=== PATIENT | female | born 1960 | race American Indian/Alaskan Native ===

== ENCOUNTER 2019-04-05 05:18 | Inpatient (IN) | payer BC ==
[2019-04-03 14:39] LABS: BASOPHILS # (AUTO) 0.1 X10'3 (0-0.2); BASOPHILS % (AUTO) 1.3 % (0-1); EOSINOPHILS # (AUTO) 0.2 X10'3 (0-0.9); EOSINOPHILS % (AUTO) 2.7 % (0-6); LYMPHOCYTES # (AUTO) 0.9 X10'3 (1.1-4.8); LYMPHOCYTES % (AUTO) 13.8 % (21-51); MEAN CORPUSCULAR HEMOGLOBIN 30.4 PG (27.0-31.0); MEAN CORPUSCULAR HGB CONC 34.2 g/dL (33.0-36.5); MEAN CORPUSCULAR VOLUME 88.9 FL (78-98); MEAN PLATELET VOLUME 7.6 FL (7.4-10.4); MONOCYTES # (AUTO) 0.5 X10'3 (0-0.9); MONOCYTES % (AUTO) 8.5 % (2-12); NEUTROPHILS # (AUTO) 4.8 X10'3 (1.8-7.7); NEUTROPHILS % (AUTO) 73.7 % (42-75); PRE OP HEMATOCRIT 42.9 % (35.0-45.0); PRE OP HEMOGLOBIN 14.7 g/dL (12.0-16.0); PRE OP PLATELET COUNT 229 X10'3 (140-440); RED BLOOD COUNT 4.83 X10'6 (4.20-5.60); RED CELL DISTRIBUTION WIDTH 13.7 % (11.5-14.5)
[2019-04-03 14:52] LABS: PRE OP INR 1.1 INR; PRE OP PROTIME 10.8 SECONDS (9.0-12.0)
[2019-04-03 14:55] LABS: ALBUMIN 3.8 G/DL (3.4-5.0); ALBUMIN/GLOBULIN RATIO 0.9 (1.1-1.5); ALKALINE PHOSPHATASE 111 IU/L (46-116); BLOOD UREA NITROGEN 13 MG/DL (7-18); BUN/CREATININE RATIO 21.7 (6.6-38.0); CALCIUM 9.4 MG/DL (8.5-10.1); CHLORIDE 105 MMOL/L (99-107); PRE OP ALT 48 U/L (30-65); PRE OP ANION GAP 9 (8-16); PRE OP AST 29 U/L (10-37); PRE OP BILIRUB, TOTAL 0.5 MG/DL (0.0-1.0); PRE OP GLUCOSE 87 MG/DL (70-104); PRE OP POTASSIUM 4.3 MMOL/L (3.4-5.1); PRE OP SODIUM 141 MMOL/L (135-145); TOTAL CARBON DIOXIDE 27.4 MMOL/L (24-32); eGFR > 90 ML/MIN
[2019-04-03 15:08] LABS: CLARITY,URINE CLEAR (Clear); COLOR,URINE YELLOW (Yellow); GLUCOSE, URINE NEGATIVE (Neg); KETONES,URINE 15 mg/dl (Neg); LEUKOCYTE ESTERASE ,URINE NEGATIVE (Neg); NITRITES, URINE NEGATIVE (Neg); OCCULT BLOOD,URINE SMALL (Neg); PH,URINE 5.5 (4.8-8.0); PROTEIN,URINE NEGATIVE (Neg); UROBILINOGEN,URINE 0.2 E.U/dL (0.2-1.0)
[2019-04-03 15:09] LABS: UA COLLECTION TYPE CLN CATCH MIDSTREAM
[2019-04-03 15:12] LABS: HEMOGLOBIN A1C 5.6 % (4.5-6.2)
[2019-04-03 15:20] LABS: BACTERIA,URINE 1+ /HPF (Neg); MUCUS STRANDS MODERATE /LPF (Neg); RBC,URINE 0-2 /HPF (0-2); SQUAMOUS EPITHELIAL CELL,UR FEW /LPF (FEW); WBC,URINE 0-4 /HPF (0-4)
[2019-04-04 14:16] LABS: ABG BASE EXCESS 0.9 mmol/L (-2.0-3.0); ABG HCO3 24.8 mmol/L (22.0-26.0); ABG PCO2 (T) 37.5 mmHg (35.0-45.0); ABG PH (T) 7.438 (7.350-7.450); ABG PO2 (T) 88.6 mmHg (83-108); ALLEN'S TEST Positive; FCOHb 1.4 % (0.5-1.5); FMetHb 0.1 % (0.3-1.12); FO2Hb 95.5 % (94-100); TOTAL HEMOGLOBIN 15.1 G/dl (12.0-16.0)
[~2019-04-05] VITALS: Ht 165.1 cm; Wt 82.6 kg
[2019-04-05] VITALS (18 sets, daily range): BP systolic 91–151; BP diastolic 47–97
[~2019-04-05 05:18] MED LIST: IBUP-1985 PO
[2019-04-05] MEDS ORDERED: ringers solution, lacted 1,000 ML IV SCH ×2 (05:30→08:53)
[2019-04-05] MEDS ORDERED: gabapentin 300mg capsule PO ONE (05:30)
[2019-04-05] MEDS ORDERED: mupirocin 2% nasal ointment 1gm UD NS ONE (05:30)
[2019-04-05] MEDS ORDERED: famotidine 20mg tablet PO ONE (05:30)
[2019-04-05] MEDS ORDERED: cefazolin/dext.iso 2gm/100 ML IV ONE (05:30)
[2019-04-05] MEDS ORDERED: LIDOcaine 1% (10mg/ml) 2ml vial ONE (05:47)
[2019-04-05] MEDS ORDERED: BUPIVAcaine/PF 2.5 mg/ml (0.25%) 30ml vial ONE (06:58)
[2019-04-05] MEDS ORDERED: scopolamine 1.5mg patch.TD72 TD ONE (07:08)
[2019-04-05] MEDS ORDERED: propofol inj 20 ML IV ONE (07:14)
[2019-04-05] MEDS ORDERED: rocuronium 10mg/ml inj IV ONE (07:14)
[2019-04-05] MEDS ORDERED: dexamethasone sod phosphate 10mg/ml inj ONE (07:14)
[2019-04-05] MEDS ORDERED: fentaNYL /PF 50mcg/ml 5ml ampule ONE (07:14)
[2019-04-05] MEDS ORDERED: sevoflurane 250ml liquid IH ONE (07:14)
[2019-04-05] MEDS ORDERED: MIDAZolam 5mg/5ml vial ONE (07:14)
[2019-04-05] MEDS ORDERED: labetalol 20mg/4ml (5mg/ml) syringe IV ONE (08:27)
[2019-04-05] MEDS ORDERED: ondansetron/PF 4mg/2ml inj ONE (08:50)
[2019-04-05] MEDS ORDERED: sugammadex 200mg/2ml injection IV ONE (08:51)
[2019-04-05] MEDS ORDERED: meperidine/PF 25mg/ml syringe IV PRN ×3 (08:55)
[2019-04-05] MEDS ORDERED: proCHLORperazine 10 MG/2 ml inj IV PRN (08:55)
[2019-04-05] MEDS ORDERED: morphine 4 MG/ML inj SYRINge IV PRN ×3 (08:55→09:10)
[2019-04-05] MEDS ORDERED: ondansetron/PF 4mg/2ml inj IV PRN ×2 (08:55→09:10)
[2019-04-05] MEDS ORDERED: metoclopramide 5 mg/ml inj IV PRN (09:10)
[2019-04-05] MEDS ORDERED: naloxone 0.4 mg/ml inj IV PRN (09:10)
[2019-04-05] MEDS ORDERED: magnesium hydroxide 30ml (MOM) UD suspension PO PRN (09:10)
[2019-04-05] MEDS ORDERED: HYDROcodone/acetaminophen 10/325mg tab PO PRN ×2 (09:10)
[2019-04-05] MEDS ORDERED: albuterol 2.5 MG/3 ML nebule NEB PRN (09:10)
--- NOTE | 2019-04-05 09:15 | NUR ---
Received from OR via BED , accompanied by Anesthesiologist DR ESPANA and report given by Anesthesiolgist. PATIENT WAKING UP, DENIES PAIN AT THIS TIME, V/S WNL, CSM INTACT, F/C DRAINING CLEAR YELLOW URINE, SCD ON, 18G PIV TO lUE AND ART LINE TO RUE, CENTRAL LINE TO RIGHT NECK, CHEST TUBE DRESSING TO right SIDE HOOKED UP TO 20CM OF SUCTION WITH mild AIR LEAK DETECTED albino aware, AND DRESSING IS CDI AND ABOUT 10CC IN CT DRAIN.
[2019-04-05 09:46] LABS: ABG BASE EXCESS -1.4 mmol/L (-2.0-3.0); ABG HCO3 24.8 mmol/L (22.0-26.0); ABG OXYGEN SATURATION 98.9 % (95-98); ABG PCO2 (T) 45.5 mmHg (35.0-45.0); ABG PO2 (T) 170.2 mmHg (83-108); FLOW 10 L/min; FMetHb 0.3 % (0.3-1.12); FO2Hb 98.6 % (94-100); TOTAL HEMOGLOBIN 14.7 G/dl (12.0-16.0)
--- NOTE | 2019-04-05 10:05 | NUR ---
PATIENT SLEEPY BUT ORIENTED, DENIES PAIN AT THIS TIME, V/S WNL, CSM INTACT, F/C DRAINING CLEAR YELLOW URINE, SCD ON, 18G PIV TO lUE AND ART LINE TO RUE, CENTRAL LINE TO RIGHT NECK, CHEST TUBE DRESSING TO right SIDE HOOKED UP TO 20CM OF SUCTION WITH mild AIR LEAK DETECTED albino aware, AND DRESSING IS CDI AND ABOUT 10CC IN CT DRAIN. PATIENT TAKEN TO ENRRIQUE UNIT WITH ALL BELONGINGS AND HOOKED UP TO MONITORS IN ROOM AND REPORT GIVEN TO RN WHO HAS TAKEN OVER PATIENT CARE.
--- NOTE | 2019-04-05 10:15 | NUR ---
Patient arrived to room 314 in stable condition. Sleepy but alert and oriented, 10/10 pain. Chest tube site looks good, no signs of air leak. Daughter at bedside.
[2019-04-05] MEDS: morphine 4 MG/ML inj SYRINge IV PRN ×2 (10:24→15:22)
[2019-04-05 11:08] LABS: ALBUMIN 3.4 G/DL (3.4-5.0); ANION GAP 8 (8-16); BLOOD UREA NITROGEN 13 MG/DL (7-18); BUN/CREATININE RATIO 18.6 (6.6-38.0); CALCIUM 8.7 MG/DL (8.5-10.1); CHLORIDE 105 MMOL/L (99-107); GLUCOSE 132 MG/DL (70-104); POTASSIUM 4.1 MMOL/L (3.5-5.1); SODIUM 140 MMOL/L (135-145); TOTAL CARBON DIOXIDE 27.5 MMOL/L (24-32); eGFR 86 ML/MIN
[2019-04-05] MEDS: ketorolac tromethamine 15mg/ml inj. IV SCH ×2 (13:03→19:07)
[2019-04-05 13:24] LABS: BASOPHILS # (AUTO) 0.1 X10'3 (0-0.2); BASOPHILS % (AUTO) 0.5 % (0-1); EOSINOPHILS % (AUTO) 0.1 % (0-6); HEMATOCRIT 40.9 % (35.0-45.0); LYMPHOCYTES # (AUTO) 0.5 X10'3 (1.1-4.8); LYMPHOCYTES % (AUTO) 4.2 % (21-51); MEAN CORPUSCULAR HEMOGLOBIN 30.6 PG (27.0-31.0); MEAN CORPUSCULAR HGB CONC 34.1 g/dL (33.0-36.5); MEAN CORPUSCULAR VOLUME 89.7 FL (78-98); MONOCYTES # (AUTO) 0.2 X10'3 (0-0.9); MONOCYTES % (AUTO) 2.3 % (2-12); NEUTROPHILS % (AUTO) 92.9 % (42-75); PLATELET COUNT 214 X10'3 (140-440); RED BLOOD COUNT 4.56 X10'6 (4.20-5.60); RED CELL DISTRIBUTION WIDTH 13.8 % (11.5-14.5); WHITE BLOOD COUNT 10.7 X10'3 (4.5-11.0)
[2019-04-05] MEDS: ceFAZolin 1GM/D5W- ADD-VANTAGE 50 ML IV SCH (15:27)
--- NOTE | 2019-04-05 18:00 | NUR ---
Patient in room MED 314. I have received report from ALEX Collazo, and had the opportunity to ask questions and assume patient care.
--- NOTE | 2019-04-05 18:23 | NUR ---
Problems reprioritized. Patient report given, questions answered & plan of care reviewed with Shobha JOHNSON.
[2019-04-05] MEDS: docusate sod 100mg capsule PO SCH (19:07)
[2019-04-05] MEDS: gabapentin 300mg capsule PO SCH (19:07)
[2019-04-05] MEDS ORDERED: non-formulary drug (Ibuprofen 1 TAB) PO SCH (20:00)
[2019-04-06] MEDS: ceFAZolin 1GM/D5W- ADD-VANTAGE 50 ML IV SCH ×3 (00:10→16:27)
[2019-04-06] MEDS: ketorolac tromethamine 15mg/ml inj. IV SCH ×2 (01:42→08:11)
[2019-04-06 02:00] VITALS: BP 94/51
[2019-04-06 03:44] LABS: BASOPHILS % (AUTO) 0.4 % (0-1); EOSINOPHILS % (AUTO) 0.1 % (0-6); HEMATOCRIT 37.3 % (35.0-45.0); HEMOGLOBIN 12.7 g/dl (12.0-16.0); LYMPHOCYTES # (AUTO) 0.7 X10'3 (1.1-4.8); LYMPHOCYTES % (AUTO) 6.7 % (21-51); MEAN CORPUSCULAR HEMOGLOBIN 30.6 PG (27.0-31.0); MEAN CORPUSCULAR HGB CONC 33.9 g/dL (33.0-36.5); MEAN CORPUSCULAR VOLUME 90.2 FL (78-98); MEAN PLATELET VOLUME 8.3 FL (7.4-10.4); MONOCYTES % (AUTO) 9.5 % (2-12); NEUTROPHILS % (AUTO) 83.3 % (42-75); PLATELET COUNT 196 X10'3 (140-440); RED BLOOD COUNT 4.14 X10'6 (4.20-5.60); RED CELL DISTRIBUTION WIDTH 13.6 % (11.5-14.5); WHITE BLOOD COUNT 10.8 X10'3 (4.5-11.0)
[2019-04-06 03:56] LABS: ALBUMIN 2.9 G/DL (3.4-5.0); ANION GAP 4 (8-16); BLOOD UREA NITROGEN 13 MG/DL (7-18); BUN/CREATININE RATIO 19.7 (6.6-38.0); CALCIUM 8.6 MG/DL (8.5-10.1); CHLORIDE 108 MMOL/L (99-107); CREATININE 0.66 MG/DL (0.40-0.90); GLUCOSE 116 MG/DL (70-104); POTASSIUM 4.5 MMOL/L (3.5-5.1); SODIUM 140 MMOL/L (135-145); eGFR > 90 ML/MIN
--- NOTE | 2019-04-06 04:16 | NUR ---
BP has been low (with MAP < than 65) for 2 consecutive hours, pt has put out 2400 ml urine since 1800 on 04/05. RN gave 250 ml bolus, will re-assess BP. Provided water to IW.
[2019-04-06 06:00] VITALS: BP 93/49
--- NOTE | 2019-04-06 06:00 | NUR ---
Problems reprioritized. Patient report given, questions answered & plan of care reviewed with Art, RN.
[2019-04-06] MEDS ORDERED: HYDROcodone/acetaminophen 5mg/325mg tablet PO PRN (08:10)
[2019-04-06] MEDS: docusate sod 100mg capsule PO SCH ×2 (08:10→19:08)
[2019-04-06] MEDS: gabapentin 300mg capsule PO SCH ×2 (08:11→19:09)
[2019-04-06 11:00] VITALS: BP 106/64
[2019-04-06 15:00] VITALS: BP 107/54
[2019-04-06] MEDS ORDERED: acetaminophen 325mg tablet PO PRN ×2 (17:50)
[2019-04-06 18:00] VITALS: BP 125/59
--- NOTE | 2019-04-06 18:00 | NUR ---
Patient in room MED 314. I have received report from Art, RN and had the opportunity to ask questions and assume patient care.
[2019-04-06] MEDS: HYDROcodone/acetaminophen 5mg/325mg tablet PO PRN (19:09)
[2019-04-06 22:00] VITALS: BP 105/47
[2019-04-07] MEDS: ceFAZolin 1GM/D5W- ADD-VANTAGE 50 ML IV SCH ×2 (00:04→08:08)
[2019-04-07 02:00] VITALS: BP 103/53
[2019-04-07] MEDS: HYDROcodone/acetaminophen 5mg/325mg tablet PO PRN ×2 (02:14→08:13)
[2019-04-07 02:53] LABS: ALBUMIN 2.8 G/DL (3.4-5.0); ANION GAP 7 (8-16); BLOOD UREA NITROGEN 10 MG/DL (7-18); BUN/CREATININE RATIO 14.9 (6.6-38.0); CALCIUM 8.1 MG/DL (8.5-10.1); CHLORIDE 107 MMOL/L (99-107); CREATININE 0.67 MG/DL (0.40-0.90); GLUCOSE 103 MG/DL (70-104); POTASSIUM 4.3 MMOL/L (3.5-5.1); SODIUM 141 MMOL/L (135-145); eGFR > 90 ML/MIN
[2019-04-07 02:59] LABS: BASOPHILS % (AUTO) 0.5 % (0-1); EOSINOPHILS # (AUTO) 0.3 X10'3 (0-0.9); LYMPHOCYTES # (AUTO) 0.9 X10'3 (1.1-4.8); LYMPHOCYTES % (AUTO) 11.4 % (21-51); MEAN CORPUSCULAR HEMOGLOBIN 30.9 PG (27.0-31.0); MEAN CORPUSCULAR HGB CONC 34.1 g/dL (33.0-36.5); MEAN CORPUSCULAR VOLUME 90.5 FL (78-98); MEAN PLATELET VOLUME 8.7 FL (7.4-10.4); MONOCYTES # (AUTO) 0.8 X10'3 (0-0.9); MONOCYTES % (AUTO) 10.6 % (2-12); NEUTROPHILS # (AUTO) 5.9 X10'3 (1.8-7.7); NEUTROPHILS % (AUTO) 73.5 % (42-75); PLATELET COUNT 189 X10'3 (140-440); RED CELL DISTRIBUTION WIDTH 13.9 % (11.5-14.5)
[2019-04-07 06:00] VITALS: BP 110/55
--- NOTE | 2019-04-07 06:00 | NUR ---
Reviewed and agreed with Shon Phillips RN's charting
--- NOTE | 2019-04-07 06:37 | NUR ---
Patient in room MED 314. I have received report from Miladis and had the opportunity to ask questions and assume patient care.
[2019-04-07] MEDS ORDERED: HYDR-4383 PO (07:27)
[2019-04-07] MEDS ORDERED: COL100C PO (07:27)
[2019-04-07] MEDS: gabapentin 300mg capsule PO SCH (08:07)
[2019-04-07] MEDS: docusate sod 100mg capsule PO SCH (08:08)
--- NOTE | 2019-04-07 09:39 | NUR ---
Chest tube removed.
--- NOTE | 2019-04-07 11:31 | NUR ---
Villanueva and Central line removed.
--- NOTE | 2019-04-07 14:20 | NUR ---
Pt given DC instructions and RX given to pt. All known property returned to pt. Pt IV removed, tip intact. Pt assisted to POV in by tech.
--- NOTE | 2019-04-07 14:53 | NUR ---
Orientee documentation: I have reviewed and agree with all interventions, assessments performed and documented by ALEX Bass .
== END 2019-04-07 14:00 | disposition home or self-care (01) | DRG 168 ==
LOC: PAS IN 05:18 → EDSTATUS 07:30 → MED 3N 10:05
PROVIDERS: ADMIT Thoracic Surgery (Cardiothoracic Vascular Surgery); ATTEND Thoracic Surgery (Cardiothoracic Vascular Surgery)
PROC: 0BBC4ZX Excision of Right Upper Lung Lobe, Percutaneous Endoscopic Approach, Diagnostic (ICD-10-PCS; 2019-04-05)
PROC: 0BBD4ZX Excision of Right Middle Lung Lobe, Percutaneous Endoscopic Approach, Diagnostic (ICD-10-PCS; 2019-04-05)
PROC: 0W9940Z Drainage of Right Pleural Cavity with Drainage Device, Percutaneous Endoscopic Approach (ICD-10-PCS; 2019-04-05)
PROC: 0BJ08ZZ Inspection of Tracheobronchial Tree, Via Natural or Artificial Opening Endoscopic (ICD-10-PCS; 2019-04-05)
PROC: 3E0T3BZ Introduction of Anesthetic Agent into Peripheral Nerves and Plexi, Percutaneous Approach (ICD-10-PCS; 2019-04-05)
PROC: 05HY33Z Insertion of Infusion Device into Upper Vein, Percutaneous Approach (ICD-10-PCS; 2019-04-05)
PROC: 0BBF4ZX Excision of Right Lower Lung Lobe, Percutaneous Endoscopic Approach, Diagnostic (ICD-10-PCS; principal; 2019-04-05 07:14)
DX: R91.8 Other nonspecific abnormal finding of lung field (principal); G89.29 Other chronic pain; M54.5 Low back pain; R13.10 Dysphagia, unspecified; Z82.49 Family history of ischemic heart disease and other diseases of the circulatory system; Z82.3 Family history of stroke; Z87.891 Personal history of nicotine dependence; Z90.710 Acquired absence of both cervix and uterus
CPT/HCPCS: Z7506; Z7508; 36415; 36600; 71045; 71046; 80048; 80053; 81001; 82803; 82948; 83036; 83735; 85018; 85025; 85610; 85730; 86885; 86900; 86901; 87070; 87075; 87081; 87102; 87176; 93005; 94010; 94760; 97161; 97530; A4215; A4618; A6258; A6449; A7000; A7048; C1758; C9399; G0378; J0690; J1100; J1885; J2001; J2250; J2270; J2405; J2704; J3010; J3490; J7060; J7120

== ENCOUNTER 2019-04-20 12:48 | Outpatient (CLI) | payer BC ==
[~2019-04-20 12:48] MED LIST changes: +COL100C PO; +HYDR-4383 PO
== END 2019-04-20 23:59 | disposition home or self-care (01) ==
LOC: RAD 12:48
PROVIDERS: ATTEND Thoracic Surgery (Cardiothoracic Vascular Surgery)
DX: R91.8 Other nonspecific abnormal finding of lung field (principal); Z98.890 Other specified postprocedural states; Z87.891 Personal history of nicotine dependence
CPT/HCPCS: 71046